=== PATIENT | female | born 1950 | race Caucasian/White ===

== ENCOUNTER 2017-09-03 05:54 | Day surgery (SDC) | payer OTHER ==
[~2017-09-03] VITALS: Ht 175.3 cm; Wt 117.9 kg
[~2017-09-03 05:54] MED LIST: ASPIR 8181 M1 PO; GLIPIZIDE XL5 MG PO; LISINOPRIL40 MG PO; METFORMIN HCL750 MG PO; PIOGLITAZONE HC15 MG PO; SIMVASTATIN10 MG PO; VERAPAMIL HCL240 MG PO
[2017-09-03 06:53] LABS: POINT-OF-CARE METER ID UU14174212
[2017-09-03 07:16] VITALS: BP 124/70
[2017-09-03 09:56] LABS: POINT-OF-CARE METER ID UU13113675
[2017-09-03 10:20] VITALS: BP 123/61
[2017-09-03 10:50] VITALS: BP 129/59
== END 2017-09-03 11:00 | disposition home or self-care (01) ==
LOC: SDC 05:54
PROVIDERS: Ophthalmology
DX: H35.342 Macular cyst, hole, or pseudohole, left eye (principal); E11.9 Type 2 diabetes mellitus without complications; I10 Essential (primary) hypertension; E78.5 Hyperlipidemia, unspecified; Z68.41 Body mass index [BMI] 40.0-44.9, adult; Z79.82 Long term (current) use of aspirin; Z79.84 Long term (current) use of oral hypoglycemic drugs
CPT/HCPCS: 82948; J0690; J0713; J2250; J2405; J3010; J3300